=== PATIENT | male | born 1965 | race African-American/Black ===

== ENCOUNTER 2019-01-18 19:31 | Inpatient (IN) | payer BC ==
[~2019-01-18] VITALS: Ht 185.4 cm; Wt 129.7 kg
[~2019-01-18 19:31] MED LIST: ACTOS; ACTOS 30 MG TAB30 M1 PO; GLIPIZIDE ER5 MG PO; LISINOPRIL-HCT1 EAC1 PO; METFORMIN; METFORMIN HCL500 MG PO; NIFEDICAL XL30 MG; PERCOCET 5-3251 EACH PO; TOPROL XL50 MG PO; VYTORIN 10-401 EACH
[2019-01-18 19:51] VITALS: BP 150/68
[2019-01-18] MEDS ORDERED: SIMVASTATIN40 MG PO (19:56)
[2019-01-18] MEDS ORDERED: ALLOPURINOL 10100 M1 PO (19:57)
[2019-01-18] MEDS ORDERED: DEPO-TESTO100 MG/1 M IM (19:57)
[2019-01-18] MEDS ORDERED: ARIMIDEX PO (19:58)
[2019-01-18 20:20] LABS: ABSOLUTE EOSINOPHILS 0.1 thou/uL (0.0-0.7); ABSOLUTE LYMPHOCYTES 1.3 thou/uL (0.8-5.3); ABSOLUTE MONOCYTES 0.8 thou/uL (0.0-1.2); BASOPHILS 0.3 %; EOSINOPHILS 1.6 %; HEMATOCRIT 35.8 % (42.0-52.0); LYMPHOCYTES 18.4 %; MCH 32.5 pg (26.0-34.0); MCHC 33.5 g/dL (28.0-37.0); MCV 97.1 fL (80.0-100.0); MONOCYTES 10.7 %; MPV 8.4 fl. (7.2-11.1); NUCLEATED RBCS 0 /100WBC; PLATELET COUNT* 207 thou/uL (150-400); RBC 3.69 mil/uL (4.50-6.00); RDW-CV 13.9 % (10.5-14.5); WBC 7.3 thou/uL (4.0-11.0)
[2019-01-18 20:30] LABS: ANION GAP 10 mmol/L (7-16); BUN 10 mg/dL (7-18); CALCIUM 9.8 mg/dL (8.5-10.1); CHLORIDE 100 mmol/L (98-107); CO2 25 mmol/L (21-32); CREATININE 1.2 mg/dL (0.6-1.3); GLUCOSE 141 mg/dL (70-99); SODIUM 135 mmol/L (136-145)
[2019-01-18 20:42] LABS: ALKALINE PHOSPHATASE 128 U/L (46-116); SGOT 81 U/L (15-37); SGPT 110 U/L (30-65); TOTAL BILIRUBIN 0.5 mg/dL (<0.1-1.0); TOTAL PROTEIN 7.8 g/dL (6.4-8.2); TROPONIN-I LEVEL <0.06 ng/mL (<0.06)
[2019-01-18 22:38] VITALS: BP 139/87
[2019-01-18 22:41] VITALS: BP 135/78
[2019-01-19] MEDS ORDERED: NIFEDIPINE ER30 M1 PO (00:47)
[2019-01-19] MEDS ORDERED: IRON325 PO (00:49)
[2019-01-19] MEDS ORDERED: ASPIRIN81 M2 PO (00:49)
[2019-01-19] MEDS ORDERED: CENTRUM SILVER1 EAC2 PO (00:50)
[2019-01-19] MEDS ORDERED: VITAMIN E400 UNIT PO (00:51)
[2019-01-19] MEDS ORDERED: SUPER B COMPLE1 EAC2 PO (00:52)
[2019-01-19 04:00] VITALS: BP 155/89
--- NOTE | 2019-01-19 05:27 | NUR ---
REPORT RECIEVED FROM ED. PT ADMITTED TO ROOM 215. PT ORIENTED TO ROOM, CALL LIGHT SHOWN, FALL AGREEMENT GONE OVER, PT STATED UNDERSTANDING. ADMISSION DOCUMENTED. IV PATENT. PAIN MEDS GIVEN PER E-MAR. PT STATED THAT MEDICATIONS WERE NOT CONTROLLING PAIN, NOTIFIED, ONE TIME DOSE OF PAIN MEDS ORDERED. WHEN THIS NURSE WENT TO TELL PATIENT, PT WAS SLEEPING. PAIN MEDS GIVEN WHEN PT WOKE UP AND CALLED OUT. PT STATES HE HAD NOT TAKEN ANY MEDICATIONS ON 01/18/19. WILL CONTINUE WITH PLAN OF CARE.
[2019-01-19 08:00] VITALS: BP 129/89
[2019-01-19 08:12] LABS: LIPASE 22074 U/L (73-393)
--- NOTE | 2019-01-19 10:36 | EKG ---
[place] [address] ELECTROCARDIOGRAM REPORT Name: JEWEL DELGADO JR Room: [address] ADM IN M.R.#: [id number] Admission: 01/18/19 Attend Phys: Addy Ferrell MD Discharge: Date of : 69 Report #: [id number] THIS REPORT FOR: //name// [facility] ED Test Date: 2019-01-18 Test Time: 19:52:39 Pat Name: JEWEL DELGADO Department: Room: [facility] Gender: M Copy Preparer: : 1965 Requested By: Siddharth Fletcher Order Number: [id number] MD: Huang Preciado Measurements Intervals [place] Rate: 95 P: 48 GA: 194 QRS: 10 QRSD: 90 T: 4 QT: 358 QTc: 450 Interpretive Statements Sinus rhythm Compared to ECG 06/01/2011 13:42:15 no change Electronically Signed On 01-19-2019 10:36:16 CDT by Huang Preciado [email or web address] <ELECTRONICALLY SIGNED> By: Huang Preciado MD, [facility] 01/19/19 1036 51 51 Huang Preciado MD, FACC /EPI
[2019-01-19 12:00] VITALS: BP 125/78
[2019-01-19 12:59] VITALS: BP 143/84
--- NOTE | 2019-01-19 15:47 | NUR ---
Pt is A&O. Resides at home with his . Independent. No DME. No hx of HH or SNF. Goal is home at mt. Following
[2019-01-19 16:00] VITALS: BP 148/74
--- NOTE | 2019-01-19 19:15 | NUR ---
ASSUMED PT CARE REPORT RECEIVED FROM NURSE. PT IS AOX4 , COMPLAINT OF PAIN. FENTANYL GIVEN X2 THIS SHIFT. NPO STATUS MAINTAINED UNTIL DINER WHEN CLEAR LIQUID DIET WAS ORDERED. CALL LIGHT AT REACH. IV FLUID INFUSING AT 150 CC PER HOUR.
[2019-01-19 19:30] VITALS: BP 143/87
--- NOTE | 2019-01-19 23:29 | NUR ---
INITAL ASSESMENT COMPLETED AT 1930. PT GIVEN PRN FENTANYL WITH ZOFRAN AT THAT TIME FOR ABDOMINAL PAIN. PT INFORMED NURSE THAT FENTANYL DID MAKE PAIN TOLERABLE BUT ONLY LASTED ABOUT AN HOUR. CLLED DR BLOOD AND RECIEVED ORDERS. PT RECIEVED DILAUDED 1 MG IV WITH GOOD RELIEF OF PAIN. CALL LIGHT IN REACH, PT USING APPROPRIATELY.
[2019-01-20] VITALS: BP 130/80
[2019-01-20 04:00] VITALS: BP 133/91
[2019-01-20 05:07] LABS: ABSOLUTE EOSINOPHILS 0.1 thou/uL (0.0-0.7); ABSOLUTE LYMPHOCYTES 0.7 thou/uL (0.8-5.3); ABSOLUTE NEUTROPHILS 5.6 thou/uL (1.6-8.1); BASOPHILS 0.1 %; EOSINOPHILS 1.5 %; HEMOGLOBIN 10.8 gm/dL (14.0-18.0); LYMPHOCYTES 9.1 %; MCH 33.1 pg (26.0-34.0); MCHC 33.8 g/dL (28.0-37.0); MONOCYTES 13.3 %; MPV 8.2 fl. (7.2-11.1); NUCLEATED RBCS 0 /100WBC; PLATELET COUNT* 175 thou/uL (150-400); RBC 3.27 mil/uL (4.50-6.00); RDW-CV 14.3 % (10.5-14.5); WBC 7.3 thou/uL (4.0-11.0)
[2019-01-20 05:31] LABS: ALBUMIN 3.2 g/dL (3.4-5.0); CALCIUM 8.7 mg/dL (8.5-10.1); POTASSIUM 3.8 mmol/L (3.5-5.1); TOTAL BILIRUBIN 0.5 mg/dL (<0.1-1.0); TOTAL PROTEIN 7.1 g/dL (6.4-8.2)
[2019-01-20 08:00] VITALS: BP 138/91
[2019-01-20 12:00] VITALS: BP 132/80
[2019-01-20 16:00] VITALS: BP 142/87
--- NOTE | 2019-01-20 18:17 | NUR ---
ASSUMED PT CARE REPORT RECEIVED FROM NURSE. PT IS AOX4, SR/ST ON ASSISTANT TO THE CEO. VSS. IV FLUID INFUSING AT 150 PER HOUR. PT RECEIVED PAIN MEDICINE X1. NO FURTHER COMPLAINT. TOLORATES CLEAR LIQUID DIET WELL, ADVANCED TO LOW FIBER DIET. DENIES N/V. AMBULATES INDEPENDENTLY IN ROOM THIS AM.WILL CONTINUE MONITORING
[2019-01-20 20:02] VITALS: BP 153/90
[2019-01-21 00:15] VITALS: BP 124/76
[2019-01-21 04:12] VITALS: BP 141/95
[2019-01-21 04:24] LABS: HEMATOCRIT 29.7 % (42.0-52.0); MCH 32.7 pg (26.0-34.0); MCHC 33.5 g/dL (28.0-37.0); MCV 97.6 fL (80.0-100.0); MPV 8.2 fl. (7.2-11.1); RBC 3.04 mil/uL (4.50-6.00); RDW-CV 14.4 % (10.5-14.5); WBC 7.1 thou/uL (4.0-11.0)
[2019-01-21 04:34] LABS: CALCIUM 8.7 mg/dL (8.5-10.1); CREATININE 0.9 mg/dL (0.6-1.3); POTASSIUM 3.6 mmol/L (3.5-5.1)
--- NOTE | 2019-01-21 06:06 | NUR ---
RECEIVED REPORT AND ASSUMED CARE AT 1900. VSS. CARDIAC MONITORING IN PLACE. PT DENIES COMPLAINTS OF PAIN. ASSESSMENT COMPLETED CHARTED. PT UP AD TAYO, ON RA. BED LOCKED IN LOWEST POSITION, CALL LIGHT WITHIN REACH. NO ACUTE CHANGES THROUGH THE NIGHT, HOURLY ROUNDING COMPLETED AND ALL NEEDS MET
[2019-01-21 08:00] VITALS: BP 149/93
[2019-01-21 11:55] VITALS: BP 141/87
--- NOTE | 2019-01-21 12:54 | NUR ---
ASSUMED PT CARE REPORT RECEIVED FROM NURSE. PT IS AOX4, TRACING SR ON CAN LABELER.ON RA. IV FLUID INFUSING AT 150 CC PER HOUR. PT IS UP AD TAYO. COMPLAINS OF R KNEE PAIN. KNEE IS SWOLLEN AND HURT TO TOUCH. KNEE XRAY WAS ORDERED. TEMPERATURE OF 100. 4 THIS AM. TYLENOL GIVEN. WILL CONTINUE TO MONITOR PT.
[2019-01-21] MEDS ORDERED: NORCO 5-325 TA1 EAC1 PO (13:43)
[2019-01-21] MEDS ORDERED: ZOFRAN ODT4 MG DISSOLVE (13:43)
[2019-01-21 14:06] VITALS: BP 141/87
--- NOTE | 2019-01-21 15:56 | NUR ---
DISCHARGE ORDERED. DISCHARGE INSTRUCTION GIVEN TO PT. IV LINE PULLED OUT. ACOUSTIC SENSOR OPERATOR OFF. PT STATES THAT HE IS IN PAIN AN NEED A NORCO DOSE BEOFRE HE LEAVES. NORCO WAS GIVEN A ONETIME ORDER PER HOSPITALIST. PT IN ROOM AWAITING FOR PAIN TO SUBSIDES BEFORE HE LEAVES.
[2019-01-22 13:46] LABS: HEPATITIS B SURFACE AG Negative (Negative)
== END 2019-01-21 17:20 | disposition home or self-care (01) | DRG 440 ==
LOC: M.ERS 19:31 → M.2W 21:58 → M.TBA-ER 21:58 → M.2W 22:39
PROVIDERS: Family Medicine; ADMIT Internal Medicine
DX: K85.20 Alcohol induced acute pancreatitis without necrosis or infection (principal); I10 Essential (primary) hypertension; K86.0 Alcohol-induced chronic pancreatitis; E11.9 Type 2 diabetes mellitus without complications; E78.5 Hyperlipidemia, unspecified; F10.20 Alcohol dependence, uncomplicated; E78.00 Pure hypercholesterolemia, unspecified; M10.9 Gout, unspecified; E66.01 Morbid (severe) obesity due to excess calories; K76.0 Fatty (change of) liver, not elsewhere classified; M17.12 Unilateral primary osteoarthritis, left knee; Z90.49 Acquired absence of other specified parts of digestive tract; Z68.37 Body mass index [BMI] 37.0-37.9, adult